=== PATIENT | female | born 1965 | race Hispanic/Latino ===

== ENCOUNTER 2017-11-22 16:13 | Emergency (ER) ==
[2017-11-22] MEDS ORDERED: NA CHLORIDE 0.9% 1,000 ML ONE ×3 (17:39→20:25)
[2017-11-22 17:42] LABS: Urine Blood 2+ (NEG); Urine Glucose NEGATIVE (NEG); Urine Protein NEGATIVE (NEG)
--- NOTE | 2017-11-22 17:42 | RAD REPORT ---
EXAM DESCRIPTION: CT - Head Brain Wo Cont - 11/22/2017 5:28 pm CLINICAL HISTORY: Headache COMPARISON: None. TECHNIQUE: Computed axial tomography of the head was obtained. IV contrast was not requested. All CT scans are performed using dose optimization technique as appropriate and may include automated exposure control or mA/KV adjustment according to patient size. FINDINGS: An intracranial bleed is not seen . The ventricles are normal in caliber. No extra-axial fluid collection is noted. Fluid within the sinuses/ mastoids is not seen. IMPRESSION: No acute intracranial abnormality is seen. If patient's symptoms persist MRI of the bra in would be recommended.
[2017-11-22 17:44] LABS: Absolute Lymphocytes (CBC) 1.7 K/uL (0.7-4.9); Absolute Monocytes 1.1 K/uL (0.1-1.3); Absolute Neutrophil 9.7 K/uL (1.8-8.0); Basophils % 0.5 % (0-1.3); Eosinophils % 0.1 % (0-4.4); Lymphocytes % 13.7 % (15.3-44.8); MCH 28.6 pg (27.0-35.0); MCV 87.4 fL (80-100); MPV 7.4 fL (7.6-11.3); Monocytes % 8.8 % (3.3-12.3); RBC Red Blood Cell Count 4.57 M/uL (3.86-4.86)
[2017-11-22 18:02] LABS: Potassium 3.5 mEq/L (3.6-5.0)
[2017-11-22 18:05] LABS: Albumin 3.5 g/dL (3.2-5.5); Bilirubin Total 0.9 mg/dL (0.3-1.2); Protein, Total 6.8 g/dL (6.0-8.3)
--- NOTE | 2017-11-22 18:10 | RAD REPORT ---
EXAM DESCRIPTION: Alexa Ramirez (2 Views)11/22/2017 5:28 pm CLINICAL HISTORY: fever COMPARISON: None FINDINGS: The lungs appear clear of acute infiltrate. The heart is normal size IMPRESSION: No acute abnormalities displayed
--- NOTE | 2017-11-22 20:45 | ER ---
Nurse's Notes [facility] Name: Shannan Morgan Age: 52 yrs Sex: Female : 1965 Arrival Date: 11/22/2017 Time: 16:19 Bed 26 Private MD: Diagnosis: Headache;Dehydration Presentation: 11/22 16:32 Presenting complaint: Patient states: frontal headache, chills, and generalized aa5 weakness that began 3 days ago. Pt sates "it started after I went running so I think I got sick from the heat exposure". Pt denies N/V/D, denies cough. Transition of care: patient was not received from another setting of care. Onset of symptoms was November 19, 2017. Risk Assessment: Do you want to hurt yourself or someone else? Patient reports no desire to harm self or others. Initial Sepsis Screen: Does the patient meet any 2 criteria? No. Patient's initial sepsis screen is negative. Does the patient have a suspected source of infection? No. Patient's initial sepsis screen is negative. Care prior to arrival: None. 16:32 Method Of Arrival: Ambulatory aa5 16:32 Acuity: DEVIN 3 aa5 Historical: - Allergies: 16:39 No Known Allergies; aa5 - Home Meds: 16:39 None [Active]; aa5 - PMHx: 16:39 None; aa5 - PSHx: 16:39 Tubal ligation; Cholecystectomy; aa5 - Immunization history:: Adult Immunizations up to date. - Social history:: Smoking status: Patient/guardian denies using tobacco. - Ebola Screening: : No symptoms or risks identified at this time. Screenin:45 Abuse screen: Denies threats or abuse. Denies injuries from another. Nutritional aj1 screening: No deficits noted. Tuberculosis screening: No symptoms or risk factors identified. Assessment: 16:45 General: Appears in no apparent distress. uncomfortable, Behavior is calm, cooperative, aj1 appropriate for age. Pain: Complains of pain in head Pain does not radiate. Pain currently is 6 out of 10 on a pain scale. Neuro: Level of Consciousness is awake, alert, obeys commands, Oriented to person, place, Moves all extremities. Full function Gait is steady, Speech is normal, Facial symmetry appears normal, Reports headache. Cardiovascular: Patient's skin is warm and dry. Respiratory: Airway is patent Respiratory effort is even, unlabored, Respiratory pattern is regular, symmetrical. GI: No signs and/or symptoms were reported involving the gastrointestinal system. : No signs and/or symptoms were reported regarding the genitourinary system. EENT: No signs and/or symptoms were reported regarding the EENT system. Derm: No signs and/or symptoms reported regarding the dermatologic system. Skin is pink, warm \\T\\ dry. normal. Musculoskeletal: No signs and/or symptoms reported regarding the musculoskeletal system. Circulation, motion, and sensation intact. 17:45 Reassessment: Patient appears in no apparent distress at this time. No changes from aj1 previously documented assessment. Patient and/or family updated on plan of care and expected duration. Pain level reassessed. Patient is alert, oriented x 3, equal unlabored respirations, skin warm/dry/pink. 18:45 Reassessment: Patient appears in no apparent distress at this time. No changes from aj1 previously documented assessment. Patient and/or family updated on plan of care and expected duration. Pain level reassessed. Patient is alert, oriented x 3, equal unlabored respirations, skin warm/dry/pink. 19:45 Reassessment: Patient appears in no apparent distress at this time. No changes from aj1 previously documented assessment. Patient and/or family updated on plan of care and expected duration. Pain level reassessed. Patient is alert, oriented x 3, equal unlabored respirations, skin warm/dry/pink. 20:31 Reassessment: Patient appears in no apparent distress at this time. No changes from aj1 previously documented assessment. Patient and/or family updated on plan of care and expected duration. Pain level reassessed. Patient is alert, oriented x 3, equal unlabored respirations, skin warm/dry/pink. 21:30 Reassessment: Patient appears in no apparent distress at this time. No changes from aj1 previously documented assessment. Patient and/or family updated on plan of care and expected duration. Pain level reassessed. Patient is alert, oriented x 3, equal unlabored respirations, skin warm/dry/pink. Patient states that her headache has resolved. 22:13 Reassessment: Patient appears in no apparent distress at this time. No changes from aj1 previously documented assessment. Patient and/or family updated on plan of care and expected duration. Pain level reassessed. Patient is alert, oriented x 3, equal unlabored respirations, skin warm/dry/pink. Vital Signs: 16:40 BP 157 / 86; Pulse 88; Resp 18 S; Temp 100.4(O); Pulse Ox 97% on R/A; Weight 81.65 kg aa5 (R); Height 5 ft. 8 in. (172.72 cm) (R); Pain 6/10; 20:31 BP 127 / 77; Pulse 82; Resp 18; Temp 99.3; Pulse Ox 98% on R/A; aj1 22:13 BP 132 / 85; Pulse 88; Resp 18; Pulse Ox 99% ; aj1 16:40 Body Mass Index 27.37 (81.65 kg, 172.72 cm) aa5 ED Course: 16:19 Patient arrived in ED. as 16:32 Arm band placed on Patient placed in an exam room, on a stretcher. aa5 16:40 Ramon Terrell NP is PHCP. pm1 16:40 Neo Santamaria MD is Attending Physician. pm1 16:40 Triage completed. aa5 16:43 Anjelica Buckley RN is Primary Nurse. aj1 16:45 Patient has correct armband on for positive identification. Bed in low position. Call aj1 light in reach. Side rails up X 1. 16:45 No provider procedures requiring assistance completed. aj1 17:25 Patient moved to radiology via stretcher. kc2 17:25 X-ray completed. Patient tolerated procedure well. kc2 17:26 Chest Pa And Lat (2 Views) XRAY In Process Unspecified. EDMS 17:28 CT Head Brain wo Cont In Process Unspecified. EDMS 17:40 Inserted saline lock: 20 gauge in right forearm, using aseptic technique. Blood aj1 collected. 22:13 IV discontinued, intact, bleeding controlled, No redness/swelling at site. Pressure aj1 dressing applied. Administered Medications: 17:40 Drug: NS 0.9% 1000 ml Route: IV; Rate: 1000 ml; Site: right forearm; aj1 22:15 Follow up: IV Status: Completed infusion; IV Intake: 1000ml aj1 20:30 Drug: NS 0.9% 1000 ml Route: IV; Rate: 1000 ml; Site: right forearm; aj1 22:15 Follow up: IV Status: Completed infusion; IV Intake: 1000ml aj1 Intake: 22:15 IV: 1000ml; Total: 1000ml. aj1 22:15 IV: 1000ml; Total: 2000ml. aj1 Outcome: 20:45 Discharge ordered by MD. pm1 22:14 Discharged to home ambulatory. aj1 22:14 Condition: good 22:14 Discharge instructions given to patient, Instructed on discharge instructions, follow up and referral plans. Demonstrated understanding of instructions, follow-up care. 22:15 Patient left the ED. aj1 Signatures: Dispatcher [employer] EDAnjelica Saucedo RN RN aj1 Myrtle Newton Audri RN RN aa5 Ramon Terrell, DOUGH CUTTER DOUGH CUTTER pm1 Alana Allison2 Corrections: (The following items were deleted from the chart) 16:42 16:20 Arm band placed on Patient placed in an exam room, on a stretcher, aa5 aa5 16:42 16:19 Method Of Arrival: Ambulatory aa5 aa 16:42 16:19 Transition of care: patient was not received from another setting of care. aa5 aa5 16:42 16:19 Onset of symptoms was November 19, 2017 aa5 aa5 16:42 16:19 Risk Assessment: Do you want to hurt yourself or someone else? Patient reports no aa5 desire to harm self or others. aa5 16:42 16:19 Initial Sepsis Screen: Does the patient meet any 2 criteria? No. Patient's aa5 initial sepsis screen is negative. Does the patient have a suspected source of infection? No. Patient's initial sepsis screen is negative. aa5 16:42 16:19 Care prior to arrival: None. aa5 aa5 16:42 16:19 Presenting complaint: Patient states: frontal headache, chills, and generalized aa5 weakness that began 3 days ago. Pt sates "it started after I went running so I think I got sick from the heat exposure". Pt denies N/V/D, denies cough aa5 16:42 16:19 Acuity: DEVIN 3 aa5 aa5 20:00 19:58 General: Appears in no apparent distress. uncomfortable, Behavior is calm, aj1 cooperative, appropriate for age, aj1 20:00 19:58 Pain: Complains of pain in head Pain does not radiate. Pain currently is 6 out of aj1 10 on a pain scale. aj1 : 19:58 Neuro: Level of Consciousness is awake, alert, obeys commands, Oriented to aj1 person, place, Moves all extremities. Full function Gait is steady, Speech is normal, Facial symmetry appears normal, Reports headache aj1 ::58 Cardiovascular: Patient's skin is warm and dry. aj1 aj1 : 19:58 Respiratory: Airway is patent Respiratory effort is even, unlabored, Respiratory aj1 pattern is regular, symmetrical, aj1 : 19:58 GI: No signs and/or symptoms were reported involving the gastrointestinal system. aj1 aj1 : 19:58 : No signs and/or symptoms were reported regarding the genitourinary system. aj1aj1 : 19:58 EENT: No signs and/or symptoms were reported regarding the EENT system. aj1 aj1 : 19:58 Derm: No signs and/or symptoms reported regarding the dermatologic system. Skin aj1 is pink, warm \\T\\ dry. normal, aj1 ::58 Musculoskeletal: No signs and/or symptoms reported regarding the musculoskeletal aj1 system. Circulation, motion, and sensation intact. aj1
--- NOTE | 2017-11-22 20:45 | EDPHYS ---
Physician Documentation [facility] Name: Shannan Morgan Age: 52 yrs Sex: Female : 1965 Arrival Date: 11/22/2017 Time: 16:19 Bed 26 Private MD: ED Physician Neo Santamaria HPI: 11/22 18:00 This 52 yrs old Female presents to ER via Ambulatory with complaints of pm1 Headache. 18:00 The patient complains of pain to the forehead. The patient describes the headache as pm1 aching, constant. Onset: The symptoms/episode began/occurred 3 day(s) ago. Associated signs and symptoms: Pertinent positives: body aches, Pertinent negatives: dizziness, nausea, neck stiffness, vomiting. Severity of symptoms: in the emergency department the pain is unchanged. Headache History: Denies prior headaches. Patient reports onset of headache 3 days ago after going for a run. patient runs daily and feels that on the day that the headache started, she did not drink enough fluids. She is also not used to the temperature here and was running on a hot day. Feels that the headache is due to the heat and dehydration. Historical: - Allergies: 16:39 No Known Allergies; aa5 - Home Meds: 16:39 None [Active]; aa5 - PMHx: 16:39 None; aa5 - PSHx: 16:39 Tubal ligation; Cholecystectomy; aa5 - Immunization history:: Adult Immunizations up to date. - Social history:: Smoking status: Patient/guardian denies using tobacco. - Ebola Screening: : No symptoms or risks identified at this time. ROS: 18:00 Eyes: Negative for injury, pain, redness, and discharge, ENT: Negative for injury, pm1 pain, and discharge, Neck: Negative for injury, pain, and swelling, Cardiovascular: Negative for chest pain, palpitations, and edema, Respiratory: Negative for shortness of breath, cough, wheezing, and pleuritic chest pain, Abdomen/GI: Negative for abdominal pain, nausea, vomiting, diarrhea, and constipation, Back: Negative for injury and pain, : Negative for injury, bleeding, discharge, and swelling. 18:00 MS/Extremity: Negative for injury and deformity, Skin: Negative for injury, rash, and discoloration. 18:00 Constitutional: Positive for body aches, chills, Negative for poor PO intake. 18:00 Neuro: Positive for headache, Negative for numbness, tingling, weakness. Exam: 18:00 Constitutional: This is a well developed, well nourished patient who is awake, alert, pm1 and in no acute distress. Head/Face: Normocephalic, atraumatic. Eyes: Pupils equal round and reactive to light, extra-ocular motions intact. Lids and lashes normal. Conjunctiva and sclera are non-icteric and not injected. Cornea within normal limits. Periorbital areas with no swelling, redness, or edema. ENT: Nares patent. No nasal discharge, no septal abnormalities noted. Tympanic membranes are normal and external auditory canals are clear. Oropharynx with no redness, swelling, or masses, exudates, or evidence of obstruction, uvula midline. Mucous membranes moist. Neck: Trachea midline, no thyromegaly or masses palpated, and no cervical lymphadenopathy. Supple, full range of motion without nuchal rigidity, or vertebral point tenderness. No Meningismus. Chest/axilla: Normal chest wall appearance and motion. Nontender with no deformity. No lesions are appreciated. Cardiovascular: Regular rate and rhythm with a normal S1 and S2. No gallops, murmurs, or rubs. Normal PMI, no JVD. No pulse deficits. Respiratory: Lungs have equal breath sounds bilaterally, clear to auscultation and percussion. No rales, rhonchi or wheezes noted. No increased work of breathing, no retractions or nasal flaring. Abdomen/GI: Soft, non-tender, with normal bowel sounds. No distension or tympany. No guarding or rebound. No evidence of tenderness throughout. Back: No spinal tenderness. No costovertebral tenderness. Full range of motion. Skin: Warm, dry with normal turgor. Normal color with no rashes, no lesions, and no evidence of cellulitis. MS/ Extremity: Pulses equal, no cyanosis. Neurovascular intact. Full, normal range of motion. 18:00 Neuro: Orientation: is normal, Mentation: is normal, Cranial nerves: CN II- XII are normal as tested, Cerebellar function: normal finger to nose testing, Motor: moves all fours, strength is 5/5 in all extremities. Vital Signs: 16:40 BP 157 / 86; Pulse 88; Resp 18 S; Temp 100.4(O); Pulse Ox 97% on R/A; Weight 81.65 kg aa5 (R); Height 5 ft. 8 in. (172.72 cm) (R); Pain 6/10; 20:31 BP 127 / 77; Pulse 82; Resp 18; Temp 99.3; Pulse Ox 98% on R/A; aj1 22:13 BP 132 / 85; Pulse 88; Resp 18; Pulse Ox 99% ; aj1 16:40 Body Mass Index 27.37 (81.65 kg, 172.72 cm) aa5 MDM: 16:41 Patient medically screened. pm1 20:30 ED course: Patient's headache resolved without the use of pain medications. Resolved pm1 with the infusion of IV fluids. Patient likely dehydrated. 20:43 Data reviewed: vital signs. Data interpreted: Pulse oximetry: on room air is 98 %. pm1 Interpretation: normal. Counseling: I had a detailed discussion with the patient and/or guardian regarding: the historical points, exam findings, and any diagnostic results supporting the discharge/admit diagnosis, lab results, radiology results, the need for outpatient follow up, to return to the emergency department if symptoms worsen or persist or if there are any questions or concerns that arise at home. 11/22 17:08 Order name: CBC with Diff; Complete Time: 17:57 pm1 11/22 17:08 Order name: CMP; Complete Time: 18:14 pm1 11/22 17:10 Order name: Urine Dipstick--Ancillary (enter results); Complete Time: 17:57 bd 11/22 17:10 Order name: Urine --Ancillary (enter results); Complete Time: 17:57 bd 11/22 17:58 Order name: CPK; Complete Time: 19:56 pm1 11/22 17:08 Order name: CT Head Brain wo Cont; Complete Time: 17:57 pm1 11/22 17:08 Order name: IV Saline Lock; Complete Time: 17:35 pm1 11/22 17:08 Order name: Urine Test (obtain specimen); Complete Time: 17:13 pm1 11/22 17:08 Order name: Urine Dipstick-Ancillary (obtain specimen); Complete Time: 17:13 pm1 11/22 17:08 Order name: Chest Pa And Lat (2 Views) XRAY; Complete Time: 18:14 pm1 Administered Medications: 17:40 Drug: NS 0.9% 1000 ml Route: IV; Rate: 1000 ml; Site: right forearm; aj1 22:15 Follow up: IV Status: Completed infusion; IV Intake: 1000ml aj1 20:30 Drug: NS 0.9% 1000 ml Route: IV; Rate: 1000 ml; Site: right forearm; aj1 22:15 Follow up: IV Status: Completed infusion; IV Intake: 1000ml aj Disposition: 11/22/17 20:45 Discharged to Home. Impression: Headache, Dehydration. - Condition is Stable. - Discharge Instructions: Dehydration, Adult, General Headache Without Cause, Rehydration, Adult. - Medication Reconciliation Form, Thank You Letter form. - Follow up: Emergency Department; When: As needed; Reason: Worsening of condition. Follow up: Private Physician; When: 2 - 3 days; Reason: Recheck today's complaints, Continuance of care, Re-evaluation by your physician. - Problem is new. - Symptoms have improved. Addendum: 11/24/2017 13:30 Co-signature as Attending Physician, Neo Santamaria MD. g s Signatures: Dispatcher [employer] [facility] Anjelica Buckley RN RN aj1 Meena Orozco RN RN aa5 Ramon Terrell, HIGH RIGGER HIGH RIGGER pm1 Neo Santamaria MD MD Corrections: (The following items were deleted from the chart) 11/22 22:05 17:09 UA MICROSCOPIC+U.LAB.BRZ ordered. [facility] 22:15 20:45 11/22/2017 20:45 Discharged to Home. Impression: Headache; Dehydration. Condition aj1 is Stable. Forms are Medication Reconciliation Form, Thank You Letter, Antibiotic Education, Prescription Opioid Use. Follow up: Emergency Department; When: As needed; Reason: Worsening of condition. Follow up: Private Physician; When: 2 - 3 days; Reason: Recheck today's complaints, Continuance of care, Re-evaluation by your physician. Problem is new. Symptoms have improved. pm1
== END 2017-11-22 22:15 | disposition home or self-care (01) ==
LOC: ER 16:13
DX: E86.0 Dehydration (principal)
CPT/HCPCS: 36415; 70450; 71046; 80053; 81003; 81025; 82550; 85025; 96360; 96361; 99284; J7030